=== PATIENT | male | born 1965 | race Caucasian/White ===

== ENCOUNTER 2019-07-25 11:52 | Outpatient (CLI) | payer OTHER, SELFPAY ==
[2019-07-25 12:14] LABS: Basophils Absolute Auto 0.03 K/mm3 (0.00-0.10); Basophils Percent Auto 0.5 % (0.0-1.0); Eosinophils Absolute Auto 0.23 K/mm3 (0.02-0.50); Eosinophils Percent Auto 3.5 % (1.0-6.0); Hematocrit 46.1 % (40.0-54.0); Hemoglobin 15.4 g/dL (14.0-18.0); Immature Granulocyte Absolute 0.02 K/mm3 (0.00-0.00); Immature Granulocyte Percent A 0.3 % (0.0-0.0); Lymphocytes Absolute Auto 2.21 K/mm3 (1.10-4.50); Lymphocytes Percent Auto 33.3 % (18.0-42.0); Mean Corpuscular HGB Conc 33.4 g/dL (32.0-36.0); Mean Corpuscular Volume 101.8 fL (78.0-102.0); Mean Platelet Volume 9.9 fl (8.7-11.0); Monocytes Absolute Auto 0.87 K/mm3 (0.10-0.90); Monocytes Percent Auto 13.1 % (2.0-11.0); Neutrophils Absolute Auto 3.3 K/mm3 (1.7-7.2); Neutrophils Percent Auto 49.3 % (50.0-70.0); Platelet Count Result 177 K/mm3 (150-420); Red Blood Count 4.53 M/mm3 (4.70-6.10); Red Cell Distribution Width 12.8 % (11.6-14.4); White Blood Count 6.6 K/mm3 (4.8-10.8)
--- NOTE | 2019-07-25 12:15 | ECG_ITS ---
Measurements Intervals [place] Rate: 56 P: 17 MI: 162 QRS: 108 QRSD: 116 T: 67 QT: 453 QTc: 438 Interpretive Statements SINUS BRADYCARDIA RIGHT AXIS DEVIATION LOW QRS VOLTAGE IN PRECORDIAL LEADS INCOMPLET RIGHT BUNDLE BRANCH BLOCK DELAYED PRECORDIAL R/S TRANSITION BORDERLINE ST ABNORMALITY- ANT/LAT LEADS BORDERLINE ECG Electronically Signed On 07-25-2019 16:56:57 [employer]ANE RIGGER by Cisco Treviño D.O.
[2019-07-25 13:29] LABS: Alanine Aminotransferase 23 U/L (16-63); Alkaline Phosphatase 56 U/L (46-116); Anion Gap 14.8 mmol/L (7-16); Aspartate Amino Transferase 18 U/L (15-37); Bilirubin,Total 0.4 mg/dL (0.00-1.00); Blood Urea Nitrogen 17 mg/dL (7-18); Calcium 8.6 mg/dL (8.5-10.1); Carbon Dioxide 26 mmol/L (21-32); Chloride 104 mmol/L (98-108); Estimated Glomerular Filt Rate > 60; Glucose 74 mg/dL (70-99); Osmolality Calculated 290 mOsm/kg (285-295); Potassium 4.8 mmol/L (3.5-5.1); Sodium 140 mmol/L (136-145); Total Protein 7.3 g/dL (6.4-8.2)
== END 2019-07-25 11:53 | disposition home or self-care (01) ==
LOC: CHSLAB 12:02
PROVIDERS: PCP Family Medicine
DX: I86.1 Scrotal varices (principal)
CPT/HCPCS: 36415; 80053; 85025; 87077; 87086; 87088; 87186; 93005

== ENCOUNTER 2019-08-10 09:52 | Outpatient (CLI) | payer OTHER, SELFPAY ==
[2019-08-10 11:15] LABS: Alanine Aminotransferase 19 U/L (16-63); Albumin Level 3.6 g/dL (3.4-5.0); Alkaline Phosphatase 58 U/L (46-116); Aspartate Amino Transferase 24 U/L (15-37); Bilirubin,Total 0.4 mg/dL (0.00-1.00); Blood Urea Nitrogen 17 mg/dL (7-18); Calcium 8.4 mg/dL (8.5-10.1); Carbon Dioxide 24 mmol/L (21-32); Chloride 105 mmol/L (98-108); Estimated Glomerular Filt Rate > 60; Glucose 116 mg/dL (70-99); Osmolality Calculated 290 mOsm/kg (285-295); Sodium 139 mmol/L (136-145); Total Protein 7.1 g/dL (6.4-8.2)
== END 2019-08-10 09:53 | disposition home or self-care (01) ==
LOC: CHSLAB 09:55
PROVIDERS: PCP Family Medicine; Visit Provider Family Medicine
DX: E87.5 Hyperkalemia (principal)
CPT/HCPCS: 36415; 80053

== ENCOUNTER 2019-08-28 09:59 | Emergency (ER) | payer OTHER, SELFPAY ==
--- NOTE | ~2019-08-28 | XR_ITS ---
XR knee LT 2V 08/28/2019 10:43 Indication: Left knee pain after recent fall Procedure: 2 views left Comparison: No prior studies for comparison. Findings: There is mild osteoarthritis of the left knee. Small knee effusion. There are multiple roun ded calcifications overlying the knee anteriorly, possibly phleboliths. No acute fracture or traumati c malalignment. Impression: 1: Mild osteoarthritis of the left knee. 2: Small left knee effusion. Reviewed, dictated and finalized at location A. Impression: 1: Mild osteoarthritis of the left knee. 2: Small left knee effusion.
--- NOTE | ~2019-08-28 | XR_ITS ---
XR knee RT 2V 08/28/2019 10:43 Indication: Right knee pain Procedure: 2 views right knee Comparison: No prior studies for comparison. Findings: There is mild osteoarthritis of the right knee. Small joint effusion. There are multiple ci rcumscribed calcifications anterior to the knee, likely benign phleboliths. No fracture or traumatic malalignment. Impression: 1: Mild osteoarthritis of the right knee. 2: Small joint effusion. Reviewed, dictated and finalized at location A. Impression: 1: Mild osteoarthritis of the right knee. 2: Small joint effusion.
[2019-08-28 10:10] VITALS: BP 127/71; PULSE 70; RESP 20; TEMP 36.9; O2SAT 100
[2019-08-28] MEDS: TETANUS,DIPHTHERIA,AC PERTUSSIS ADULT 0.5 ML (ADACEL) IM (10:35)
--- NOTE | 2019-08-28 10:48 | ED.GENADULT ---
HPI - General Adult General Chief complaint: Fall Stated complaint: fell hurt both knees Time Seen by Provider: 08/28/19 10:35 Source: patient Mode of arrival: ambulatory Limitations: no limitations History of Present Illness HPI narrative: Fidel is a very pleasant 54-year-old male patient. He presents ambulatory to the emergency room. He was walking outside and stumbled and fell. He landed on his knees and also on the left elbow. His main complaint is minor pain to the anterior aspect of both knees. He has abrasions to the anterior aspect of both knees. He has minor abrasion to the back of the left elbow. Range of motion to the left elbow is normal. He does not want any x-rays on the elbow. He did agree for x-rays of the knees. He did not want any pain medications. The abrasions were cleansed , antibiotic ointment and Band-Aid dressings were applied. X-rays of both knees were obtained. MD complaint: Fall. Abrasion and contusion to both knees. 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) Location: upper extremity and lower extremity Radiation: non-radiation Severity: mild Quality: sharp Pain Consistency: intermittent Relieving factors: other ( Fidel declined any pain medication) Exacerbating factors: none Associated symptoms: denies other symptoms Treatments prior to arrival: none Related Data Allergies Allergy/AdvReac Type Severity Reaction Status Date / Time prednisone AdvReac Confusion Verified 08/28/19 10:59 Sulfa (Sulfonamide AdvReac Confusion Verified 08/28/19 10:59 Antibiotics) Review of Systems Review of Systems: All systems reviewed & are unremarkable except as noted in HPI and below Constitutional: Constitutional: Reports as per HPI, Reports no additional constitutional complaints, Denies chills and Denies fever(s) Eyes: Eyes: Reports as per HPI, Reports no additional eye complaints and Denies change in vision ENT: Reports system reviewed and no additional complaints, except as documented, Denies vertigo, Denies dizziness and Denies sore throat Cardiovascular: Cardiovascular: Reports as per HPI, Reports no additional cardiovascular complaints, Denies chest pain and Denies radiating jaw, neck or arm pain Respiratory: Respiratory: Reports as per HPI, Reports no additional respiratory complaints, Denies cough and Denies dyspnea Gastrointestinal: Gastrointestinal: Reports as per HPI, Reports no additional gastrointestinal complaints, Denies abdominal pain, Denies nausea and Denies vomiting Genitourinary: Genitourinary: Reports no additional male genitourinary complaints, Denies hematuria and Denies dysuria Musculoskeletal: Musculoskeletal: Reports no additional musculoskeletal complaints Comments: See HPI narrative for details Integumentary/Breasts: Skin/Breast: Reports system reviewed and no additional complaints, except as docu Comments: minor abrasions to anterior aspect of both knees and posterior aspect of left elbow. Neurologic: Reports system reviewed and no additional complaints, except as documented, Reports as per HPI, Denies vertigo, Denies dizziness, Denies syncope, Denies focal weakness and Denies numbness Psychiatric: Psychiatric: Reports no additional psychiatric complaints, Reports as per HPI, Denies anxiety and Denies depression Endocrine: Endocrine: Reports no additional endocrine complaints and Denies polydipsia Hematologic/Lymphatic: Hematologic/Lymphatic: Reports no additional hematologic/lymphatic complaints, Reports as per HPI, Denies easy bleeding and Denies easy bruising Allergic/Immunologic: Allergic/Immunologic: Reports no additional allergic/immunologic complaints, Reports as per HPI, Denies lip swelling and Denies tongue swelling [facility] Past Medical History Medical History (Updated 08/28/19 @ 11:05 by All Solis MD) Hypertension Surgical History Surgical History (Updated 08/28/19 @ 10:59 by All Solis MD) History of ankle surgery S/P excision of varicocel
--- NOTE | 2019-08-28 11:04 | PC.NURSE ---
PT HOME MEDS LISINOPRIL, ZANTAC, FLUOXITINE, AASPIRIN, NAPROSYN. UNKNOWN DOSAGE.
== END 2019-08-28 11:10 | disposition home or self-care (01) ==
PROVIDERS: Emergency Provider Surgery; PCP Family Medicine
DX: S80.01XA Contusion of right knee, initial encounter (principal); S80.02XA Contusion of left knee, initial encounter; S50.312A Abrasion of left elbow, initial encounter; W19.XXXA Unspecified fall, initial encounter
CPT/HCPCS: 73560; 90471; 90715; 99282; 99284

== ENCOUNTER 2019-10-17 06:56 | Outpatient (CLI) | payer OTHER, SELFPAY ==
[2019-10-17 08:03] LABS: Alanine Aminotransferase 22 U/L (16-63); Albumin Level 3.8 g/dL (3.4-5.0); Alkaline Phosphatase 63 U/L (46-116); Anion Gap 14.5 mmol/L (7-16); Aspartate Amino Transferase 21 U/L (15-37); Bilirubin,Total 0.5 mg/dL (0.00-1.00); Blood Urea Nitrogen 23 mg/dL (7-18); Carbon Dioxide 26 mmol/L (21-32); Chloride 104 mmol/L (98-108); Estimated Glomerular Filt Rate > 60; Glucose 95 mg/dL (70-99); Osmolality Calculated 293 mOsm/kg (285-295); Potassium 4.5 mmol/L (3.5-5.1); Sodium 140 mmol/L (136-145)
== END 2019-10-17 06:57 | disposition home or self-care (01) ==
PROVIDERS: PCP Family Medicine; Visit Provider Family Medicine
DX: E87.5 Hyperkalemia (principal)
CPT/HCPCS: 36415; 80053

== ENCOUNTER 2019-11-27 10:34 | Emergency (ER) | payer OTHER, SELFPAY ==
[2019-11-27 11:10] VITALS: BP 111/55; PULSE 76; RESP 16; TEMP 36.8; O2SAT 97
--- NOTE | 2019-11-27 11:11 | ED.LOWEXIN ---
HPI - Extremity Injury (Lower) General Chief Complaint: Extremity Injury, Lower Stated Complaint: Hurt R knee Time Seen by Provider: 11/27/19 11:06 Source: patient and RN notes reviewed Mode of arrival: wheelchair Limitations: no limitations History of Present Illness HPI Narrative: Patient states he was walking his puppy yesterday. He turned and caught his foot tripping hitting a culvert. Says he twisted his knee to the inside falling on it. complaint: knee injury Onset (ago): day(s) (1) Injury: Right: knee Type of Injury: inversion Place: street/outdoors Severity: moderate Relieving factors: rest Exacerbating factors: weight bearing Context: walking Associated symptoms: swelling Other symptoms: none Treatments prior to arrival: NSAIDS Related Data Home Medications Medication Instructions Recorded Confirmed fluoxetine mg 11/27/19 hydrocodone-acetaminophen 11/27/19 lisinopril 11/27/19 Allergies Allergy/AdvReac Type Severity Reaction Status Date / Time prednisone AdvReac Confusion Verified 08/28/19 10:59 Sulfa (Sulfonamide AdvReac Confusion Verified 08/28/19 10:59 Antibiotics) Review of Systems Review of Systems: All systems reviewed & are unremarkable except as noted in HPI and below PMFSH Past Medical History Medical History Hypertension Surgical History Surgical History History of ankle surgery S/P excision of varicocele Family History Family History Father , father of [place] Heart disease Mother , mother of stroke in her early 70s Cerebrovascular accident Social History Social History Smoking packs per day: 1 Smoking cigarettes per day: 20.0 Years smoked: 40 Smoking pack-years: 40.00 Smoking status: Current every day smoker Tobacco type: cigarettes Substance use: never Exam Const: General: healthy appearing and no acute distress Nutritional Appearance: well nourished and obese morbidly obese Orientation/consciousness: patient oriented x3 HENMT: Head: normal to inspection Face and sinus: normal facial exam Eyes: General: appearance normal, both eyes and all related structures Conjunctivae: conjunctivae normal Pupils: Equal, round and reactive pupils present EOM: EOMs intact bilaterally Neck: Neck: normal visual inspection Resp: Effort & Inspection: normal respiratory effort Auscultation: clear to auscultation bilaterally Cardio: Rate: regular rate Rhythm: regular rhythm GI: GI Palp: Yes Soft to palpation Auscultation: normal bowel sounds Back/Spine/Pelvis: Cervical Spine: cervical ROM normal Thoracic/Lumbar Spine: thoraco-lumbar ROM normal Skin: General skin exam: normal color Rashes: no rashes Neuro: General: patient oriented x3, moves all extremities, no meningeal signs and no focal motor deficits Speech: normal speech Gait exam (Neuro): Normal gait present Extrem: General: normal to inspection and no pedal edema Right lower extremity: knee Details: swelling Location: of the proximal tibia Details: medially and knee ligament exam normal Details: anterior drawer test normal, valgus stress test normal, varus stress test normal and Usha?s test normal Psych: Appearance: grossly normal and well kempt Mental Status: mental status grossly normal Affect: normal affect Attitude: cooperative Thought content: Yes Normal thought content present Discharge Plan Discharge Clinical Impression: Strain of knee and leg, right Qualifiers: Encounter type: initial encounter Qualified Code(s): S86.911A - Strain of unspecified muscle(s) and tendon(s) at lower leg level, right leg, initial encounter Patient Disposition: Home, Self-Care Condition: Stable Instructions: Knee Sprain (ED) Additional Instructions
== END 2019-11-27 11:40 | disposition home or self-care (01) ==
PROVIDERS: Emergency Provider Emergency Medicine; PCP Family Medicine
DX: S86.911A Strain of unspecified muscle(s) and tendon(s) at lower leg level, right leg, initial encounter (principal); W18.40XA Slipping, tripping and stumbling without falling, unspecified, initial encounter
CPT/HCPCS: 99282

== ENCOUNTER 2020-02-01 07:39 | Outpatient (CLI) | payer OTHER, SELFPAY ==
--- NOTE | ~2020-02-01 | US_ITS ---
EXAMINATION: US soft tissue groin LT DATE: 02/01/2020 08:05 INDICATION: Left pelvic lump. TECHNIQUE: Multiple grayscale and Doppler ultrasound images of the left inguinal region were obtained . COMPARISON: None FINDINGS: There is no abnormal mass or lymphadenopathy in the left inguinal region in the patient's a nicole of concern. IMPRESSION: 1. No abnormal mass or lymphadenopathy in the left inguinal region in the patient's area of concern. Reviewed, dictated and finalized at location B. IMPRESSION: 1. No abnormal mass or lymphadenopathy in the left inguinal region in the patie nt's area of concern.
== END 2020-02-01 07:40 | disposition home or self-care (01) ==
PROVIDERS: PCP Family Medicine; Visit Provider Family Medicine
DX: R19.09 Other intra-abdominal and pelvic swelling, mass and lump (principal)
CPT/HCPCS: 76882

== ENCOUNTER 2020-10-19 10:09 | Outpatient (CLI) | payer OTHER, SELFPAY | END 2020-10-19 10:10 | disposition home or self-care (01) | LOC: CHSCOVIDVC 10:09 | PROVIDERS: PCP Family Medicine | DX: Z23 Encounter for immunization (principal) | CPT/HCPCS: 0011A; 91301 ==

== ENCOUNTER 2020-11-16 09:51 | Outpatient (CLI) | payer OTHER, SELFPAY | END 2020-11-16 09:52 | disposition home or self-care (01) | LOC: CHSCOVIDVC 09:51 | PROVIDERS: PCP Family Medicine | DX: Z23 Encounter for immunization (principal) | CPT/HCPCS: 0012A; 91301 ==

== ENCOUNTER 2020-12-03 09:52 | Emergency (ER) | payer OTHER, SELFPAY ==
[2020-12-03 10:00] VITALS: BP 118/62; PULSE 73; RESP 20; TEMP 36.5; O2SAT 98
--- NOTE | 2020-12-03 10:08 | ED.LOWEXIN ---
HPI - Extremity Injury (Lower) General Stated Complaint: Left foot blister Time Seen by Provider: 12/03/20 10:08 Source: patient Mode of arrival: ambulatory Limitations: no limitations Related Data Home Medications Medication Instructions Recorded Confirmed aspirin 81 mg tablet,delayed 81 mg PO DAILY 01/29/20 12/03/20 release famotidine 20 mg PO DAILY 12/03/20 12/03/20 fluoxetine 20 mg PO DAILY 12/03/20 12/03/20 lisinopril 10 mg PO DAILY 12/03/20 12/03/20 Allergies Allergy/AdvReac Type Severity Reaction Status Date / Time prednisone AdvReac Confusion Verified 11/15/20 10:40 Sulfa (Sulfonamide AdvReac Confusion Verified 11/15/20 10:40 Antibiotics) [facility] Past Medical History Medical History (Updated 12/03/20 @ 10:15 by Vinod Cagle MD) Acid reflux BMI greater than 40 Depression HTN (hypertension) Hypertension Nicotine dependence, cigarettes, uncomplicated Surgical History Surgical History History of ankle surgery Left History of colon surgery 2014 S/P excision of varicocele Family History Family History Father , father of [place] Heart disease Mother , mother of stroke in her early 70s Cerebrovascular accident Social History Social History Smoking packs per day: 1 Smoking cigarettes per day: 20.0 Years smoked: 40 Smoking pack-years: 40.00 Smoking status: Current every day smoker Tobacco type: cigarettes Substance use: never Substance use type: does not use Discharge Plan Discharge Clinical Impression: Wound of foot Patient Disposition: Home, Self-Care Condition: Stable Instructions: Antibiotic Form, Acute Wounds (ED) Additional Instructions: Follow up with family doctor as needed Prescriptions: New sulfamethoxazole-trimethoprim [Bactrim DS] 800-160 mg tablet 1 tablet PO Q12H Qty: 20 RF: 0 No Action famotidine 20 mg tablet 20 mg PO DAILY RF: 0 lisinopril 10 mg tablet 10 mg PO DAILY RF: 0 fluoxetine 20 mg capsule 20 mg PO DAILY RF: 0 aspirin [Adult Aspirin Regimen] 81 mg tablet,delayed release (DR/EC) 81 mg PO DAILY RF: 0 Follow-up/Referrals: Hoang Smith DO [Primary Care Provider] - Time of Disposition: 10:15
[2020-12-03 10:20] VITALS: BP 118/62; PULSE 73; RESP 20; TEMP 36.5; O2SAT 97
== END 2020-12-03 10:22 | disposition home or self-care (01) ==
PROVIDERS: Emergency Provider Emergency Medicine; PCP Family Medicine
DX: S91.302A Unspecified open wound, left foot, initial encounter (principal)
CPT/HCPCS: 99283

== ENCOUNTER 2021-03-12 12:15 | Outpatient (NON) | payer OTHER, SELFPAY | END 2021-03-12 12:16 | disposition home or self-care (01) | LOC: CHSLAB 12:16 | PROVIDERS: Visit Provider Nurse Practitioner Family | DX: L02.91 Cutaneous abscess, unspecified (principal) | CPT/HCPCS: 87070; 87205 ==

== ENCOUNTER 2021-05-13 13:38 | Outpatient (CLI) | payer OTHER, SELFPAY ==
--- NOTE | ~2021-05-13 | US_ITS ---
EXAMINATION: US scrotum doppler EXAM DATE: 05/13/2021 14:04 INDICATION: N50.812 - Left testicular pain. History varicocelectomy. TECHNIQUE: Multiple grayscale and Doppler images of the testicles and scrotum were obtained bilateral ly. Comparison is made to prior examination from 09/05/2009. FINDINGS: Right testicle measures 3.5 x 1.9 x 2.7 cm and is morphologically normal. Low resistance Doppler atul w confirmed. The epididymis is unremarkable. Moderate-sized varicocele, vessel diameter up to 4 mm. Left testicle measures 3.5 x 1.4 x 2.9 cm and is morphologically normal. Low resistance Doppler flow confirmed. The epididymis is unremarkable. Small varicocele as diameter up to 2 mm. Trace left hydro lamont. Compared to Limited study from 2009, varicoceles appear more pronounced. IMPRESSION: Moderate right, small left varicoceles. Reviewed, dictated and finalized at location A. ER FEEDER
== END 2021-05-13 13:39 | disposition home or self-care (01) ==
LOC: CHSIMG 13:39
PROVIDERS: PCP Nurse Practitioner Family; Visit Provider Nurse Practitioner Family
DX: N50.812 Left testicular pain (principal)
CPT/HCPCS: 76870; 93976

== ENCOUNTER 2021-06-16 12:08 | Outpatient (CLI) | payer OTHER, SELFPAY ==
[2021-06-16 13:19] LABS: Influenza A QL RT-PCR Negative (Negative); Influenza B QL RT-PCR Negative (Negative); SARS-CoV-2 RNA PCR Negative (Negative)
== END 2021-06-16 12:09 | disposition home or self-care (01) ==
LOC: CHSLAB 12:11
PROVIDERS: PCP Family Medicine; Visit Provider Nurse Practitioner Family
DX: R50.9 Fever, unspecified (principal); Z20.822 Contact with and (suspected) exposure to COVID-19
CPT/HCPCS: 87502; C9803; U0003; U0005

== ENCOUNTER 2021-06-18 09:01 | Emergency (ER) | payer OTHER, SELFPAY ==
[2021-06-18 09:17] VITALS: BP 159/83; PULSE 71; RESP 16; TEMP 36.6; O2SAT 98
--- NOTE | 2021-06-18 09:31 | ED.MALEGU ---
HPI - Male Genitourinary General Chief complaint: Urogenital-Male Stated complaint: FEELING WEAK Related Data Home Medications Medication Instructions Recorded Confirmed aspirin 81 mg tablet,delayed 81 mg PO DAILY 01/29/20 06/18/21 release omeprazole 20 mg PO DAILY 06/18/21 06/18/21 Allergies Allergy/AdvReac Type Severity Reaction Status Date / Time prednisone AdvReac Confusion Verified 06/18/21 09:14 Sulfa (Sulfonamide AdvReac Confusion Verified 06/18/21 09:14 Antibiotics) Review of Systems Constitutional: Constitutional: Denies chills and Denies fever(s) ENT: Denies sore throat Cardiovascular: Cardiovascular: Denies chest pain PMFSH Past Medical History Medical History Acid reflux BMI greater than 40 Depression HTN (hypertension) Hypertension Nicotine dependence, cigarettes, uncomplicated Surgical History Surgical History History of ankle surgery Left History of colon surgery 2014 S/P excision of varicocele Family History Family History Father , father of [place] Heart disease Mother , mother of stroke in her early 70s Cerebrovascular accident Social History Social History Smoking packs per day: 1 Smoking cigarettes per day: 20.0 Years smoked: 40 Smoking pack-years: 40.00 Smoking status: Current every day smoker Tobacco type: cigarettes Alcohol use details: denies alcohol use Substance use: never Substance use type: does not use Course Vital Signs Vital signs: Vital Signs Temperature 36.6 C 06/18/21 09:17 Pulse Rate 71 06/18/21 09:17 Respiratory Rate 16 06/18/21 09:17 Blood Pressure 159/83 H 06/18/21 09:17 Pulse Oximetry 98 06/18/21 09:17 Temperature 36.6 C 06/18/21 09:17 Pulse Rate 71 06/18/21 09:17 Respiratory Rate 16 06/18/21 09:17 Blood Pressure 159/83 H 06/18/21 09:17 Pulse Oximetry 98 06/18/21 09:17 MDM - Male Genitourinary Lab Data Result diagrams: 06/18/21 10:05 06/18/21 10:05 Labs: Lab Results 06/18/21 06/18/21 06/18/21 Range/Units 09:44 10:05 10:05 WBC 6.8 (4.8-10.8) K/mm3 RBC 4.91 (4.70-6.10) M/mm3 Hgb 16.4 (14.0-18.0) g/dL Hct 49.5 (40.0-54.0) % MCV 100.8 (78.0-102.0) fL MCH 33.4 H (27.0-31.0) pg MCHC 33.1 (32.0-36.0) g/dL RDW 12.7 (11.6-14.4) % Plt Count 195 (150-420) K/mm3 MPV 9.7 (8.7-11.0) fl Immature Gran % (Auto) 0.4 H (0.0-0.0) % Neut % (Auto) 75.3 H (50.0-70.0) % Lymph % (Auto) 14.1 L (18.0-42.0) % Alcorn % (Auto) 7.9 (2.0-11.0) % Eos % (Auto) 1.6 (1.0-6.0) % Baso % (Auto) 0.7 (0.0-1.0) % Lymph # (Auto) 0.95 L (1.10-4.50) K/mm3 Alcorn # (Auto) 0.53 (0.10-0.90) K/mm3 Eos # (Auto) 0.11 (0.02-0.50) K/mm3 Baso # (Auto) 0.05 (0.00-0.10) K/mm3 Abs Immat Gran (auto) 0.03 H (0.00-0.00) K/mm3 Absolute Neuts (auto) 5.1 (1.7-7.2) K/mm3 Absolute Nucleated RBC 0.00 (0.00-0.00) K/mm3 Nucleated RBC % 0.0 (0-0.0) % Sodium 136 (136-145) mmol/L Potassium 4.4 (3.5-5.1) mmol/L Chloride 100 (98-108) mmol/L Carbon Dioxide 26 (21-32) mmol/L Anion Gap 10 (8-16) mmol/L BUN 13 (7-18) mg/dL Creatinine 1.00 (0.70-1.30) mg/dL Estim Creat Clear Calc 105 ml/min Estimated GFR > 60 (59 - ) Glucose 114 H (70-99) mg/dL Calculated Osmolality 283 L (285-295) mOsm/kg Lactic Acid (0.4-2.0) mmol/L Calcium 9.1 (8.5-10.1) mg/dL Total Bilirubin 0.9 (0.00-1.00) mg/dL AST 65 H (15-37) U/L ALT 32 (16-63) U/L Alkaline Phosphatase 71 (46-116) U/L Troponin I (0.00-60.4) ng/L C-Reactive Protein (0.0-0.9) mg/dL Total Protein 7.7 (6.4-8.
--- NOTE | 2021-06-18 09:58 | ECG_ITS ---
Measurements Intervals [place] Rate: 60 P: 15 MA: 149 QRS: 118 QRSD: 109 T: 47 QT: 440 QTc: 440 Interpretive Statements SINUS RHYTHM RIGHT AXIS DEVIATION INCOMPLETE RIGHT BUNDLE BRANCH BLOCK DELAYED PRECORDIAL R/S TRANSITION BORDERLINE ECG Electronically Signed On 06-18-2021 10:10:30 [employer]PORATE STRATEGY INTERN by Cisco Treviño D.O.
[2021-06-18] MEDS: ONDANSETRON HCL ODT 4 MG TABLET PO (10:06)
[2021-06-18 10:16] LABS: Basophils Absolute Auto 0.05 K/mm3 (0.00-0.10); Basophils Percent Auto 0.7 % (0.0-1.0); Eosinophils Absolute Auto 0.11 K/mm3 (0.02-0.50); Eosinophils Percent Auto 1.6 % (1.0-6.0); Hematocrit 49.5 % (40.0-54.0); Hemoglobin 16.4 g/dL (14.0-18.0); Immature Granulocyte Absolute 0.03 K/mm3 (0.00-0.00); Immature Granulocyte Percent A 0.4 % (0.0-0.0); Lymphocytes Absolute Auto 0.95 K/mm3 (1.10-4.50); Lymphocytes Percent Auto 14.1 % (18.0-42.0); Mean Corpuscular HGB Conc 33.1 g/dL (32.0-36.0); Mean Corpuscular Hemoglobin 33.4 pg (27.0-31.0); Mean Corpuscular Volume 100.8 fL (78.0-102.0); Mean Platelet Volume 9.7 fl (8.7-11.0); Monocytes Absolute Auto 0.53 K/mm3 (0.10-0.90); Monocytes Percent Auto 7.9 % (2.0-11.0); Neutrophils Absolute Auto 5.1 K/mm3 (1.7-7.2); Neutrophils Percent Auto 75.3 % (50.0-70.0); Platelet Count Result 195 K/mm3 (150-420); Red Blood Count 4.91 M/mm3 (4.70-6.10); Red Cell Distribution Width 12.7 % (11.6-14.4); White Blood Count 6.8 K/mm3 (4.8-10.8)
[2021-06-18 10:34] LABS: Lactic Acid Reflex 1.2 mmol/L (0.4-2.0)
[2021-06-18 10:38] LABS: Alanine Aminotransferase 32 U/L (16-63); Alkaline Phosphatase 71 U/L (46-116); Anion Gap 10 mmol/L (8-16); Aspartate Amino Transferase 65 U/L (15-37); Bilirubin,Total 0.9 mg/dL (0.00-1.00); Blood Urea Nitrogen 13 mg/dL (7-18); CRP < 0.2 mg/dL (0.0-0.9); Calcium 9.1 mg/dL (8.5-10.1); Carbon Dioxide 26 mmol/L (21-32); Chloride 100 mmol/L (98-108); Estimated CRCL calculation 105 ml/min; Estimated Glomerular Filt Rate > 60; Glucose 114 mg/dL (70-99); Lipase 155 U/L (73-393); Osmolality Calculated 283 mOsm/kg (285-295); Potassium 4.4 mmol/L (3.5-5.1); Sodium 136 mmol/L (136-145); Total Protein 7.7 g/dL (6.4-8.2)
[2021-06-18 10:38] LABS: Troponin I 11.3 ng/L (0.00-60.4)
[2021-06-18 10:55] LABS: Add Urine Microscopic? NO; Appearance Urine Clear (Clear); Bilirubin Urine Negative (Negative); Blood Urine Negative (Negative); Color Urine Yellow (Yellow); Glucose Urine UA Negative (Negative); Ketones Urine Negative (Negative); Leukocyte Esterase Ur Negative LEU/UL (Negative); Nitrate Urine Negative (Negative); Protein Urine Negative (Negative); Specific Grav Ur 1.025 (1.010-1.020); Urobilinogen Urine 0.2 mg/dL (0.2-1.0)
[2021-06-18] MEDS: LACTATED RINGERS 1,000 ML 999 ML IV CONT (12:11)
--- NOTE | 2021-06-18 12:35 | ED.WEAKNESS ---
HPI - Weakness General Chief complaint: Urogenital-Male Stated complaint: FEELING WEAK Source: patient and RN notes reviewed Mode of arrival: ambulatory Limitations: no limitations History of Present Illness HPI Narrative: Patient states he has been having 3 days of generalized weakness. He called his primary care and had outpatient testing done yesterday for COVID and influenza. Both were negative. He says he just feels dizzy has been having some headaches feels nauseous but has not thrown up. Said he was able to keep some food down yesterday. He states he has got chronic diarrhea nothing has changed. Denies any fever chills. Denies any cough. Says he is having some low back pain as well. No other generalized aches or pains. MD Complaint: generalized weakness Onset (ago): day(s) (3) Duration: constant Location: generalized Migration: none Severity: moderate Relieving factors: none Exacerbating factors: exertion Associated symptoms: headaches, loss of appetite and nausea/vomiting (no vomiting) Related Data Home Medications Medication Instructions Recorded Confirmed aspirin 81 mg tablet,delayed 81 mg PO DAILY 01/29/20 06/18/21 release omeprazole 20 mg PO DAILY 06/18/21 06/18/21 Allergies Allergy/AdvReac Type Severity Reaction Status Date / Time prednisone AdvReac Confusion Verified 06/18/21 09:14 Sulfa (Sulfonamide AdvReac Confusion Verified 06/18/21 09:14 Antibiotics) Review of Systems Review of Systems: All systems reviewed & are unremarkable except as noted in HPI and below Constitutional: Constitutional: Denies chills and Denies fever(s) Cardiovascular: Cardiovascular: Denies chest pain Respiratory: Respiratory: Denies cough and Denies dyspnea Gastrointestinal: Gastrointestinal: Denies abdominal pain, Denies constipation, Reports nausea and Denies vomiting Neurologic: Reports dizziness and Reports headache(s) [facility] Past Medical History Medical History (Updated 06/18/21 @ 12:50 by Vinod Morfin MD) Acid reflux BMI greater than 40 Depression HTN (hypertension) Hypertension Nicotine dependence, cigarettes, uncomplicated Surgical History Surgical History History of ankle surgery Left History of colon surgery 2014 S/P excision of varicocele Family History Family History Father , father of [place] Heart disease Mother , mother of stroke in her early 70s Cerebrovascular accident Social History Social History Smoking packs per day: 1 Smoking cigarettes per day: 20.0 Years smoked: 40 Smoking pack-years: 40.00 Smoking status: Current every day smoker Tobacco type: cigarettes Alcohol use details: denies alcohol use Substance use: never Substance use type: does not use Exam Const: General: healthy appearing, no acute distress and alert Nutritional Appearance: well nourished and obese morbidly obese Orientation/consciousness: patient oriented x3 HENMT: Head: normal to inspection Ears: external ears normal Mouth: Yes moist mucous membranes Eyes: Conjunctivae: conjunctivae normal Pupils: Equal, round and reactive pupils present EOM: EOMs intact bilaterally Neck: Neck: normal visual inspection Resp: Effort & Inspection: normal respiratory effort Auscultation: clear to auscultation bilaterally Cardio: Rate: regular rate Rhythm: regular rhythm GI: GI Palp: Yes Soft to palpation, No Tenderness to palpation present (GI) and No Rebound tenderness present Auscultation: normal bowel sounds Back/Spine/Pelvis: Cervical Spine: cervical ROM normal Thoracic/Lumbar Spine: thoraco-lumbar ROM normal Skin: General skin exam: normal color Rashes: no rashes Neuro: General: patient oriented x3, moves all extremities, no meningeal signs and no focal motor de
[2021-06-18 13:01] VITALS: BP 122/68; PULSE 67; RESP 16; TEMP 36.8; O2SAT 95
--- NOTE | 2021-06-21 10:26 | PC.NURSE ---
spoke with pt regarding blood cultures, explained need for antibiotics. rx called to [facility] per pt request. per dr verma rx : dicloxacillin 500mg Q6hrs (#40). called in at 1028am. 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
--- NOTE | 2021-06-24 13:47 | PC.NURSE ---
pt's PMD notified of culture report. pt called and instructed to f/u with pmd for an appointment today.
== END 2021-06-18 13:05 | disposition home or self-care (01) ==
PROVIDERS: Emergency Provider Emergency Medicine; PCP Family Medicine
DX: R53.1 Weakness (principal)
CPT/HCPCS: 36415; 80053; 81003; 83605; 83690; 84443; 84484; 85025; 86140; 87040; 87147; 87186; 93005; 96360; 99283; 99284; A9270; J7120

== ENCOUNTER 2021-07-01 08:03 | Outpatient (CLI) | payer OTHER, SELFPAY ==
[2021-07-01 09:36] LABS: Magnesium 2.1 mg/dL (1.8-2.4); Vitamin B12 390 pg/mL (193-986)
[2021-07-04 04:00] LABS: Vitamin D 25 Hydroxy 27 ng/mL (30-100)
== END 2021-07-01 08:04 | disposition home or self-care (01) ==
LOC: CHSLAB 08:05
PROVIDERS: PCP Nurse Practitioner Family; Visit Provider Nurse Practitioner Family
DX: Z79.899 Other long term (current) drug therapy (principal); R53.1 Weakness
CPT/HCPCS: 36415; 82306; 82607; 83735

== ENCOUNTER 2021-10-07 10:10 | Outpatient (CLI) | payer OTHER, SELFPAY ==
[2021-10-07 10:25] LABS: Basophils Absolute Auto 0.05 K/mm3 (0.00-0.10); Basophils Percent Auto 0.8 % (0.0-1.0); Eosinophils Absolute Auto 0.25 K/mm3 (0.02-0.50); Eosinophils Percent Auto 4.1 % (1.0-6.0); Hematocrit 47.9 % (40.0-54.0); Hemoglobin 15.7 g/dL (14.0-18.0); Immature Granulocyte Absolute 0.04 K/mm3 (0.00-0.00); Immature Granulocyte Percent A 0.7 % (0.0-0.0); Lymphocytes Absolute Auto 1.83 K/mm3 (1.10-4.50); Lymphocytes Percent Auto 30.1 % (18.0-42.0); Mean Corpuscular HGB Conc 32.8 g/dL (32.0-36.0); Mean Corpuscular Hemoglobin 32.6 pg (27.0-31.0); Mean Corpuscular Volume 99.6 fL (78.0-102.0); Mean Platelet Volume 9.8 fl (8.7-11.0); Monocytes Absolute Auto 0.62 K/mm3 (0.10-0.90); Monocytes Percent Auto 10.2 % (2.0-11.0); Neutrophils Absolute Auto 3.3 K/mm3 (1.7-7.2); Neutrophils Percent Auto 54.1 % (50.0-70.0); Platelet Count Result 183 K/mm3 (150-420); Red Blood Count 4.81 M/mm3 (4.70-6.10); Red Cell Distribution Width 13.4 % (11.6-14.4); White Blood Count 6.1 K/mm3 (4.8-10.8)
[2021-10-07 11:02] LABS: Prostate Specific Antigen 0.4 ng/mL (< OR = 4.0)
== END 2021-10-07 10:11 | disposition home or self-care (01) ==
LOC: CHSLAB 10:14
PROVIDERS: PCP Family Medicine; Visit Provider Nurse Practitioner Family
DX: R39.9 Unspecified symptoms and signs involving the genitourinary system (principal); M54.50 Low back pain, unspecified; N53.19 Other ejaculatory dysfunction
CPT/HCPCS: 36415; 84153; 85025; 87086

== ENCOUNTER 2021-10-18 17:16 | Emergency (ER) | payer OTHER, SELFPAY ==
--- NOTE | ~2021-10-18 | XR_ITS ---
EXAMINATION: XR chest 2V Exam Date/Time: 10/18/2021 17:55 CDT CLINICAL HISTORY: weakness Comparison: 04/28/2010. RESULT: Lines, tubes, and devices: None. Lungs and pleura: Clear. Cardiomediastinal silhouette: Stable cardiomediastinal silhouette. Other: No acute osseous or upper abdominal finding. IMPRESSION: No acute cardiopulmonary process Reviewed, dictated and finalized at location K.
--- NOTE | 2021-10-18 17:35 | ECG_ITS ---
Measurements Intervals [place] Rate: 71 P: 5 NE: 161 QRS: 118 QRSD: 107 T: 95 QT: 421 QTc: 458 Interpretive Statements SINUS RHYTHM INCOMPLETE RIGHT BUNDLE BRANCH BLOCK BORDERLINE T WAVE ABNORMALITY- ANTEROLAT/HIGH LAT LEADS LOW QRS VOLTAGE IN PRECORDIAL LEADS BASELINE ARTIFACT- I, II, III, AVR, AVL, AVF, V1-V6 BORDERLINE ECG Electronically Signed On 10-19-2021 6:47:30 CDT by Cisco Treviño D.O.
[2021-10-18 17:36] VITALS: BP 144/88; PULSE 75; RESP 20; TEMP 36.4; O2SAT 96
--- NOTE | 2021-10-18 17:37 | ED.NAVMDI ---
HPI - Nausea/Vomiting/Diarrhea General Chief complaint: Nausea/Vomiting/Diarrhea Stated complaint: feeling week fatigue nauseated sweating Time Seen by Provider: 10/18/21 17:37 Source: patient Mode of arrival: ambulatory Limitations: no limitations History of Present Illness HPI Narrative: this is a 56-year-old gentleman with a history of hypertension, was diagnosed with COVID approximately 2 weeks ago and presents today with some nausea with no chest pain no shortness of breath no cough or congestion patient just describes feeling of weakness and shakiness, with no fever chills has nausea with some no vomiting no diarrhea or constipation no flank pain no dysuria. MD elicited complaint: nausea Onset (ago): hour(s) Associated nausea: Yes Associated abdominal pain: No Related Data Home Medications Medication Instructions Recorded Confirmed aspirin 81 mg tablet,delayed 81 mg PO DAILY 01/29/20 08/04/21 release famotidine 20 mg PO DAILY 10/18/21 10/18/21 fluoxetine 20 mg PO BID 10/18/21 10/18/21 lisinopril 10 mg PO DAILY 10/18/21 10/18/21 omeprazole 20 mg PO DAILY 10/18/21 10/18/21 Allergies Allergy/AdvReac Type Severity Reaction Status Date / Time prednisone AdvReac Confusion Verified 10/18/21 17:41 Sulfa (Sulfonamide AdvReac Confusion Verified 10/18/21 17:41 Antibiotics) Review of Systems Review of Systems: All systems reviewed & are unremarkable except as noted in HPI and below PMFSH Past Medical History Medical History (Updated 10/18/21 @ 18:47 by Kuldip Turner MD) Acid reflux BMI greater than 40 Depression HTN (hypertension) Hypertension Nicotine dependence, cigarettes, uncomplicated Surgical History Surgical History History of ankle surgery Left History of colon surgery 2014 S/P excision of varicocele Family History Family History Father , father of [place] Heart disease Mother , mother of stroke in her early 70s Cerebrovascular accident Social History Social History Smoking packs per day: 1 Smoking cigarettes per day: 20.0 Years smoked: 40 Smoking pack-years: 40.00 Smoking status: Current every day smoker (A pack a day) Tobacco type: cigarettes Alcohol use details: denies alcohol use Substance use: never Substance use type: does not use Exam Const: General: no acute distress and alert Orientation/consciousness: patient oriented x3 HENMT: Head: normal to inspection Eyes: Pupils: Equal, round and reactive pupils present Neck: Neck: normal visual inspection, no lymphadenopathy and no meningeal signs Chest: Chest palpation & inspection: normal inspection of the chest Resp: Effort & Inspection: normal respiratory effort Cardio: Rate: regular rate Rhythm: regular rhythm GI: GI Palp: Yes Soft to palpation Percussion: Yes normal to percussion Urinary Catheter: Urinary Catheter: patent and draining Back/Spine/Pelvis: Back: no CVA tenderness Skin: General skin exam: normal color Rashes: no rashes Neuro: General: patient oriented x3 and moves all extremities Extrem: General: normal to inspection and no pedal edema Psych: Mental Status: mental status grossly normal Course Course Emergency Course: Patient feeling nauseated and describing some weakness, IV started and IV fluids given IV Zofran and EKG and blood work were performed and reviewed with patient and family. reassessment of patient states that he is feeling much better after receiving Zofran and IV fluids. Critical Care Time Critical Care Time Critical Care Time: No Discharge Plan Discharge Clinical Impression: Weakness, Nausea, Hyponatremia Patient Disposition: Home, Self-Care Condition: Stable Instructions: Antibiotic Form, Acute Nausea and Vomiting (ED), Hyponatremia
[2021-10-18 17:55] LABS: Basophils Absolute Auto 0.03 K/mm3 (0.00-0.10); Basophils Percent Auto 0.4 % (0.0-1.0); Eosinophils Absolute Auto 0.11 K/mm3 (0.02-0.50); Eosinophils Percent Auto 1.6 % (1.0-6.0); Hematocrit 47.3 % (40.0-54.0); Hemoglobin 15.7 g/dL (14.0-18.0); Immature Granulocyte Absolute 0.04 K/mm3 (0.00-0.00); Immature Granulocyte Percent A 0.6 % (0.0-0.0); Immature Platelet Fraction Pct 4.4 % (1.0-7.0); Lymphocytes Percent Auto 21.9 % (18.0-42.0); Mean Corpuscular HGB Conc 33.2 g/dL (32.0-36.0); Mean Corpuscular Hemoglobin 32.2 pg (27.0-31.0); Mean Corpuscular Volume 96.9 fL (78.0-102.0); Mean Platelet Volume 10.9 fl (8.7-11.0); Monocytes Absolute Auto 0.62 K/mm3 (0.10-0.90); Neutrophils Absolute Auto 4.6 K/mm3 (1.7-7.2); Neutrophils Percent Auto 66.5 % (50.0-70.0); Platelet Count Result 165 K/mm3 (150-420); Red Blood Count 4.88 M/mm3 (4.70-6.10); Red Cell Distribution Width 12.9 % (11.6-14.4); White Blood Count 6.9 K/mm3 (4.8-10.8)
[2021-10-18] MEDS: SODIUM CHLORIDE 0.9% IV 500 ML 999 ML IV CONT (17:57)
[2021-10-18] MEDS: ONDANSETRON INJ 4 MG/2 ML VIAL IV PUSH (17:59)
[2021-10-18 18:10] LABS: Alanine Aminotransferase 15 U/L (16-63); Albumin Level 3.7 g/dL (3.4-5.0); Alkaline Phosphatase 75 U/L (46-116); Anion Gap 8 mmol/L (8-16); Aspartate Amino Transferase 16 U/L (15-37); Bilirubin,Total 0.5 mg/dL (0.00-1.00); Blood Urea Nitrogen 15 mg/dL (7-18); Calcium 8.5 mg/dL (8.5-10.1); Carbon Dioxide 26 mmol/L (21-32); Chloride 98 mmol/L (98-108); Estimated CRCL calculation 129 ml/min; Estimated Glomerular Filt Rate > 60; Glucose 86 mg/dL (70-99); Osmolality Calculated 273 mOsm/kg (285-295); Potassium 4.1 mmol/L (3.5-5.1); Sodium 132 mmol/L (136-145); Total Protein 7.5 g/dL (6.4-8.2); Troponin I 7.2 ng/L (0.00-60.4)
[2021-10-18 18:41] LABS: Add Urine Microscopic? NO; Appearance Urine Clear (Clear); Bilirubin Urine Negative (Negative); Blood Urine Negative (Negative); Color Urine Light Yellow (Yellow); Glucose Urine UA Negative (Negative); Ketones Urine Negative (Negative); Leukocyte Esterase Ur Negative (Negative); Nitrate Urine Negative (Negative); Protein Urine Negative (Negative); Specific Grav Ur 1.015 (1.010-1.020); Urobilinogen Urine 0.2 mg/dL (0.2-1.0)
[2021-10-18 18:52] VITALS: BP 137/66; PULSE 66; RESP 20; TEMP 36.7; O2SAT 95
== END 2021-10-18 19:09 | disposition home or self-care (01) ==
PROVIDERS: Emergency Provider Emergency Medicine; PCP Family Medicine
DX: R53.1 Weakness (principal); R11.0 Nausea; E87.1 Hypo-osmolality and hyponatremia
CPT/HCPCS: 36415; 71046; 80053; 81003; 84484; 85025; 85055; 93005; 96361; 96374; 99284; J2405; J7040

== ENCOUNTER 2021-10-21 13:21 | Outpatient (CLI) | payer OTHER, SELFPAY ==
--- NOTE | ~2021-10-21 | XR_ITS ---
EXAMINATION: XR lumbar spine 2-3V DATE: 10/21/2021 13:42 INDICATION: Low back pain TECHNIQUE: Anteroposterior and lateral views of the lumbar spine, and cone-down lateral view of the l umbosacral junction were obtained. COMPARISON: None. FINDINGS: Bone alignment is normal. There is no fracture. The vertebral body heights are normal. The intervertebral disc spaces are maintained. Small degenerative osteophytes project from the anterior e ndplates of multiple vertebral bodies. There is mild facet osteoarthritis of the lower lumbar spine. Calcified atherosclerosis is noted. IMPRESSION: 1. Mild lumbar spondylosis without acute findings. Reviewed, dictated and finalized at location A.
== END 2021-10-21 13:22 | disposition home or self-care (01) ==
LOC: CHSIMG 13:24
PROVIDERS: PCP Family Medicine; Visit Provider Family Medicine
DX: M47.816 Spondylosis without myelopathy or radiculopathy, lumbar region (principal); M54.9 Dorsalgia, unspecified
CPT/HCPCS: 72100

== ENCOUNTER 2021-10-27 07:42 | Outpatient (CLI) | payer OTHER, SELFPAY ==
--- NOTE | ~2021-10-27 | US_ITS ---
EXAMINATION: US abdomen limited DATE: 10/27/2021 08:05 INDICATION: Unspecified abdominal pain TECHNIQUE: Multiple grayscale and Doppler ultrasound images of the abdomen were obtained. COMPARISON: None available FINDINGS: Bowel gas obscures visualization of the pancreas. The visualized portions of the pancreas a re unremarkable. The liver demonstrates increased echogenicity, heterogenous echotexture, and decreas ed through transmission. No surface nodularity. Normal hepatopetal flow in the main portal vein. The gallbladder is normal with no abnormal wall thickening, pericholecystic fluid or stones. The normal c ommon bile duct measures 4 mm. There was no sonographic Ayala sign. IMPRESSION: 1. Diffuse hepatic steatosis. No sonographic correlate for abdominal pain. Reviewed, dictated and finalized at location A.
== END 2021-10-27 07:43 | disposition home or self-care (01) ==
LOC: CHSIMG 07:44
PROVIDERS: PCP Family Medicine; Visit Provider Family Medicine
DX: R10.9 Unspecified abdominal pain (principal)
CPT/HCPCS: 76705

== ENCOUNTER 2021-11-25 12:20 | Outpatient (CLI) | payer OTHER, SELFPAY ==
--- NOTE | ~2021-11-25 | XR_ITS ---
XR foot LT 2V DATE: 11/25/2021 13:07 INDICATION: Intermittent pain, erythema, swelling of left foot TECHNIQUE: AP and lateral views COMPARISON: None FINDINGS: Status post surgical talocalcaneal and calcaneocuboid fusion. There is osteoporotic change at the talonavicular and tarsal joints. Mild osteoarthritis at the tibiotalar and first metatarsophalangeal joints. Slight plantar and mild posterior calcaneal enthesopathy. IMPRESSION: Surgical fusion at the talocalcaneal and calcaneocuboid joints Polyarticular osteoarthritis Slight plantar and mild posterior calcaneal enthesopathy Reviewed, dictated and finalized at location A.
[2021-11-25 12:46] LABS: Basophils Absolute Auto 0.04 K/mm3 (0.00-0.10); Basophils Percent Auto 0.6 % (0.0-1.0); Eosinophils Absolute Auto 0.22 K/mm3 (0.02-0.50); Eosinophils Percent Auto 3.4 % (1.0-6.0); Hematocrit 45.4 % (40.0-54.0); Hemoglobin 14.8 g/dL (14.0-18.0); Immature Granulocyte Absolute 0.03 K/mm3 (0.00-0.00); Immature Granulocyte Percent A 0.5 % (0.0-0.0); Lymphocytes Absolute Auto 1.82 K/mm3 (1.10-4.50); Lymphocytes Percent Auto 28.1 % (18.0-42.0); Mean Corpuscular HGB Conc 32.6 g/dL (32.0-36.0); Mean Corpuscular Hemoglobin 32.4 pg (27.0-31.0); Mean Corpuscular Volume 99.3 fL (78.0-102.0); Mean Platelet Volume 9.9 fl (8.7-11.0); Monocytes Absolute Auto 0.53 K/mm3 (0.10-0.90); Monocytes Percent Auto 8.2 % (2.0-11.0); Neutrophils Absolute Auto 3.8 K/mm3 (1.7-7.2); Neutrophils Percent Auto 59.2 % (50.0-70.0); Platelet Count Result 168 K/mm3 (150-420); Red Blood Count 4.57 M/mm3 (4.70-6.10); Red Cell Distribution Width 13.3 % (11.6-14.4); White Blood Count 6.5 K/mm3 (4.8-10.8)
[2021-11-25 13:04] LABS: Uric Acid 6.4 mg/dL (3.5-7.2)
== END 2021-11-25 12:21 | disposition home or self-care (01) ==
LOC: CHSLAB 12:23
PROVIDERS: PCP Nurse Practitioner Family; Visit Provider Nurse Practitioner Family
DX: M79.672 Pain in left foot (principal)
CPT/HCPCS: 36415; 73620; 84550; 85025

== ENCOUNTER 2021-12-26 09:33 | Outpatient (CLI) | payer OTHER, SELFPAY ==
--- NOTE | ~2021-12-26 | US_ITS ---
EXAMINATION: US scrotum doppler DATE: 12/26/2021 10:15 INDICATION: Right scrotal pain, concern for hernia TECHNIQUE: Testicular sonogram utilizing grayscale and Doppler COMPARISON: 05/13/2021 FINDINGS: The right testis measures 4.1 x 2.7 x 2.2 cm. The left testis measures 3.9 x 2.3 x 1.9 cm. There is normal vascular flow to both testes. The right epididymis is normal with normal vascular atul w. The left epididymis is normal with normal vascular flow. Bilateral varicoceles are noted. No sonog raphically detected hernia is seen. IMPRESSION: 1. No sonographically detected hernia identified. Reviewed, dictated and finalized at location B.
== END 2021-12-26 09:34 | disposition home or self-care (01) ==
LOC: CHSIMG 09:35
PROVIDERS: PCP Family Medicine; Visit Provider Nurse Practitioner Family
DX: N50.82 Scrotal pain (principal)
CPT/HCPCS: 76870; 93976

== ENCOUNTER 2022-02-03 14:22 | Emergency (ER) | payer OTHER, SELFPAY ==
[2022-02-03 14:33] VITALS: BP 161/89; PULSE 73; PULSE 79; RESP 16; RESP 18; TEMP 35.9; O2SAT 95; O2SAT 97
[2022-02-03] MEDS: ONDANSETRON HCL ODT 4 MG TABLET PO (15:07)
--- NOTE | 2022-02-03 15:07 | ED.NAVMDI ---
HPI - Nausea/Vomiting/Diarrhea General Chief complaint: Nausea/Vomiting/Diarrhea Stated complaint: HEADACHE, WEAKNESS, NAUSEA Time Seen by Provider: 02/03/22 14:28 Source: patient and RN notes reviewed Mode of arrival: ambulatory Limitations: no limitations History of Present Illness MD elicited complaint: nausea, vomiting and diarrhea Onset (ago): hour(s) (2) Description of vomiting: food contents Description of diarrhea: lose Associated nausea: Yes Associated abdominal pain: No Exacerbating factors: eating Relieving factors: none Associated symptoms: denies other symptoms Treatment prior to arrival: other ( Dramamine) Related Data Home Medications Medication Instructions Recorded Confirmed aspirin 81 mg tablet,delayed 81 mg PO DAILY 01/29/20 02/03/22 release (Adult Aspirin Regimen) Allergies Allergy/AdvReac Type Severity Reaction Status Date / Time prednisone AdvReac Confusion Verified 02/03/22 14:37 Sulfa (Sulfonamide AdvReac Confusion Verified 02/03/22 14:37 Antibiotics) Review of Systems Review of Systems: All systems reviewed & are unremarkable except as noted in HPI and below Constitutional: Constitutional: Denies chills and Denies fever(s) ENT: Denies nasal congestion and Denies sore throat Respiratory: Respiratory: Denies cough and Reports dyspnea Gastrointestinal: Gastrointestinal: Reports as per HPI Musculoskeletal: Musculoskeletal: Denies myalgias PMFSH Past Medical History Medical History Abscess Acid reflux BMI greater than 40 Chronic diarrhea COVID Depression HTN (hypertension) Hypertension Left testicular pain MRSA (methicillin resistant Staphylococcus aureus) Nicotine dependence, cigarettes, uncomplicated Other ejaculatory dysfunction 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 Positive blood culture Scrotum pain Weakness Surgical History Surgical History History of ankle surgery Left History of colon surgery 2014 S/P excision of varicocele Family History Family History Father , father of [place] Heart disease Mother , mother of stroke in her early 70s Cerebrovascular accident Social History Social History Smoking packs per day: 1 Smoking cigarettes per day: 20.0 Years smoked: 40 Smoking pack-years: 40.00 Smoking status: Current every day smoker Tobacco type: cigarettes Alcohol use details: denies alcohol use Substance use: never Substance use type: does not use Exam Const: General: healthy appearing, no acute distress and alert Nutritional Appearance: well nourished and obese morbidly obese Orientation/consciousness: patient oriented x3 Limitations: no limitations HENMT: Head: normal to inspection Ears: external ears normal Face and sinus: normal facial exam Eyes: Conjunctivae: conjunctivae normal Cornea: corneas normal Pupils: Equal, round and reactive pupils present EOM: EOMs intact bilaterally Neck: Neck: normal visual inspection Resp: Effort & Inspection: normal respiratory effort Auscultation: clear to auscultation bilaterally Cardio: Rate: regular rate Rhythm: regular rhythm GI: GI Palp: Yes Soft to palpation, No Tenderness to palpation present (GI) and No Guarding due to palpation present (GI) Auscultation: normal bowel sounds Back/Spine/Pelvis: Cervical Spine: cervical ROM normal Thoracic/Lumbar Spine: thoraco-lumbar ROM normal Skin: General skin exam: normal color Rashes: no rashes Neuro: General: patient oriented x3, moves all extremities, no focal motor deficits and CN's II-XI intact bilaterally Speech: normal speech Gait exam (Neuro): Normal gait present Extrem: General: normal to inspection and no clubbing, cyanosis or edema Psych: Mental Status: mental status baldo
[2022-02-03 15:22] LABS: Influenza A QL RT-PCR Negative (Negative); Influenza B QL RT-PCR Negative (Negative); SARS-CoV-2 RNA PCR Negative (Negative)
[2022-02-03 15:37] VITALS: BP 150/83; PULSE 71; RESP 17; TEMP 35.9; O2SAT 97
== END 2022-02-03 15:38 | disposition home or self-care (01) ==
PROVIDERS: Emergency Provider Emergency Medicine; PCP Family Medicine
DX: K52.9 Noninfective gastroenteritis and colitis, unspecified (principal); Z20.822 Contact with and (suspected) exposure to COVID-19
CPT/HCPCS: 87502; 99283; A9270; C9803; U0003; U0005

== ENCOUNTER 2022-02-04 12:20 | Outpatient (CLI) | payer OTHER, SELFPAY ==
[2022-02-04 12:42] LABS: Basophils Absolute Auto 0.05 K/mm3 (0.00-0.10); Basophils Percent Auto 0.6 % (0.0-1.0); Eosinophils Absolute Auto 0.24 K/mm3 (0.02-0.50); Hematocrit 47.6 % (40.0-54.0); Hemoglobin 15.6 g/dL (14.0-18.0); Immature Granulocyte Absolute 0.04 K/mm3 (0.00-0.00); Immature Granulocyte Percent A 0.5 % (0.0-0.0); Lymphocytes Percent Auto 22.8 % (18.0-42.0); Mean Corpuscular HGB Conc 32.8 g/dL (32.0-36.0); Mean Corpuscular Hemoglobin 32.5 pg (27.0-31.0); Mean Corpuscular Volume 99.2 fL (78.0-102.0); Mean Platelet Volume 9.8 fl (8.7-11.0); Monocytes Absolute Auto 0.78 K/mm3 (0.10-0.90); Monocytes Percent Auto 9.9 % (2.0-11.0); Neutrophils Percent Auto 63.2 % (50.0-70.0); Platelet Count Result 196 K/mm3 (150-420); Red Cell Distribution Width 13.4 % (11.6-14.4); White Blood Count 7.9 K/mm3 (4.8-10.8)
[2022-02-04 12:56] LABS: Add Urine Microscopic? NO; Appearance Urine Clear (Clear); Bilirubin Urine Negative (Negative); Blood Urine Negative (Negative); Color Urine Yellow (Yellow); Glucose Urine UA Negative (Negative); Ketones Urine Negative (Negative); Leukocyte Esterase Ur Negative LEU/UL (Negative); Nitrate Urine Negative (Negative); Protein Urine Negative (Negative); Specific Grav Ur 1.025 (1.010-1.020); Urobilinogen Urine 0.2 mg/dL (0.2-1.0)
[2022-02-04 13:10] LABS: Alanine Aminotransferase 29 U/L (16-63); Albumin Level 3.7 g/dL (3.4-5.0); Alkaline Phosphatase 79 U/L (46-116); Anion Gap 8 mmol/L (8-16); Aspartate Amino Transferase 19 U/L (15-37); Bilirubin,Total 0.3 mg/dL (0.00-1.00); Blood Urea Nitrogen 18 mg/dL (7-18); Calcium 8.5 mg/dL (8.5-10.1); Carbon Dioxide 26 mmol/L (21-32); Chloride 103 mmol/L (98-108); Estimated Glomerular Filt Rate > 60; Free T4 Free Thyroxine 0.79 ng/dL (0.76-1.46); Glucose 95 mg/dL (70-99); Iron 90 ug/dL (65-175); Magnesium 2.1 mg/dL (1.8-2.4); Osmolality Calculated 285 mOsm/kg (285-295); Potassium 4.4 mmol/L (3.5-5.1); Sodium 137 mmol/L (136-145); Thyroid Stimulating Hormone 1.99 uIU/mL (0.36-3.74); Total Protein 7.4 g/dL (6.4-8.2)
[2022-02-08 17:09] LABS: Vitamin D 25 Hydroxy 29 ng/mL (30-100)
== END 2022-02-04 12:21 | disposition home or self-care (01) ==
LOC: CHSLAB 12:22
PROVIDERS: PCP Nurse Practitioner Family; Visit Provider Nurse Practitioner Family
DX: R53.1 Weakness (principal); I10 Essential (primary) hypertension; Z79.899 Other long term (current) drug therapy
CPT/HCPCS: 36415; 80053; 81003; 82306; 83540; 83735; 84439; 84443; 85025

== ENCOUNTER 2022-02-16 07:37 | Outpatient (CLI) | payer OTHER, SELFPAY | END 2022-02-16 07:38 | disposition home or self-care (01) | PROVIDERS: PCP Nurse Practitioner Family; Visit Provider Nurse Practitioner Family | DX: I50.9 Heart failure, unspecified (principal); R53.1 Weakness | CPT/HCPCS: 78452; A9502 ==

== ENCOUNTER 2022-07-14 07:47 | Outpatient (RCR) | payer OTHER, SELFPAY ==
--- NOTE | 2022-07-14 08:23 | PTOPEVAL1 ---
Assessment and note entered by Kuldip Brar Evaluation Information Assessment Status Evaluation Diagnosis right shoulder pain Onset 01/11/22 Subjective Information Pt. reports that right shoulder pain began about 6 months ago. He describes pain on the front side of the right shoulder. He states that he is right hand dominant. He reports that he cannot sleep flat and needs to sleep in the recliner due to pain. He reports pain is increased with reaching away from his body. He states that he cannot reach overhead as well, due to pain. He reports that his goal is to decrease his right shoulder pain. Reported Pain Level Pain Score 9: Self Report Assessment PT Clinical Summary Pt. is a 57 year old male who enters the clinic with right shoulder pain, secondary to rotator cuff syndrome. He presents with impaired right shoulder mobility, impaired right u.e. strength, and pain on this date. Continued treatment is indicated in order to improve these areas to allow the pt. to be able to complete all IADL's. Plan of Care Interventions Electrical Stimulation,Hot Pack/Cold Pack,Manual Therapy,Therapeutic Activities,Therapeutic Exercise PT Services Indicated Yes Treatment Frequency and 2x/week x 12 visits Duration These treatments will address the objective and functional deficits as defined above. The patient will be advanced safely and appropriately in order for the patient to progress towards his/her prior level of function. Additional exercises will be introduced and as well as a comprehensive home exercise program upon discharge, if needed, ?to ensure carryover of functional gains achieved in the clinic. This treatment plan has been reviewed and agreement upon by the patient.
== END 2022-07-29 23:59 | disposition home or self-care (01) ==
LOC: CHSPT 07:47
PROVIDERS: Visit Provider Orthopaedic Surgery
DX: M25.511 Pain in right shoulder (principal); G89.29 Other chronic pain; M75.21 Bicipital tendinitis, right shoulder; M19.011 Primary osteoarthritis, right shoulder
CPT/HCPCS: 97014; 97110; 97140; 97161; G0283

== ENCOUNTER 2023-12-11 15:17 | Emergency (ER) | payer BC, SELFPAY ==
[2023-12-11] VITALS (18 sets, daily range): BP systolic 131–141; BP diastolic 89–90; PULSE 87–108; RESP 17–29; TEMP 36.6; O2SAT 90–100
--- NOTE | ~2023-12-11 | XR_ITS ---
EXAMINATION: XR tibia fibula LT 2V DATE: 12/11/2023 16:32 INDICATION: Left lower leg pain and swelling. TECHNIQUE: 2 views of left tibia and fibula on 4 radiographs were obtained. COMPARISON: None. FINDINGS: Bone alignment is normal. No acute fracture. There is moderate left knee osteoarthritis. No knee joint effusion. There is screw fixation of calcaneus. There are changes of arthrodesis procedur e of subtalar joint with a lag screw. There is mild ankle joint osteoarthritis. IMPRESSION: 1. Polyarticular osteoarthritis. Reviewed, dictated and finalized at location E.
--- NOTE | ~2023-12-11 | CT_ITS ---
EXAMINATION: CTA chest PE protocol DATE: 12/11/2023 18:51 INDICATION: Cough. Shortness of breath. TECHNIQUE: Computed tomography angiography (CTA) of the chest was performed with 100 mL Omnipaque-350 intravenous contrast timed to evaluate the pulmonary arteries. Coronal maximum intensity projection 3D-reconstructions were created by the technologist. Automated exposure control and iterative reconst ruction technique were employed. The dose-length product was 1130.55 mGy-cm. COMPARISON: Chest CT 11/15/2015 FINDINGS: The lungs demonstrate mild atelectasis. No pleural effusion. There is a large distribution of acute pulmonary emboli in all lobes. The central pulmonary arteries are enlarged, consistent with pulmonary arterial hypertension. There is right ventricular enlargement of the heart, consistent with right heart strain. There are coronary artery calcifications. No pericardial effusion. There is a sm all sliding hiatal hernia. There is mild thoracic spondylosis. There is mild chronic anterior wedging of multiple lower thoracic vertebral bodies. IMPRESSION: 1. Extensive acute bilateral pulmonary emboli with right heart strain. I called this result to Dr. Tootie kenny. Reviewed, dictated and finalized at location E. IMPRESSION: 1. Extensive acute bilateral pulmonary emboli with right heart strain. I called this result to Dr. Turner.
--- NOTE | ~2023-12-11 | XR_ITS ---
EXAMINATION: XR chest 1V portable DATE: 12/11/2023 16:32 INDICATION: Shortness of breath. Cough. TECHNIQUE: A single frontal view of the chest was obtained on 2 radiographs. COMPARISON: Chest 2 views 10/18/2021 FINDINGS: There is no pneumonia, pleural effusion, or pneumothorax. The heart size is normal. IMPRESSION: 1. No acute cardiopulmonary disease. Reviewed, dictated and finalized at location E.
--- NOTE | 2023-12-11 15:35 | ECG_ITS ---
Test Date: 2023-12-11 15:52:18 Measurements Intervals [place] Rate: 100 P: 68 SC: 136 QRS: 161 QRSD: 116 T: 84 QT: 378 QTc: 488 Interpretive Statements SINUS TACHYCARDIA SUSPECT RIGHT TO LEFT ARM LEAD TRANSPOSITION LOW QRS VOLTAGE IN PRECORDIAL LEADS [QRS DEFLECTION < 1.0 mV IN CHEST LEADS] PATTERN CONSISTENT WITH PULMONARY DISEASE RIGHT BUNDLE BRANCH BLOCK [120+ ms QRS DURATION, UPRIGHT V1, 40+ ms S IN I/aVL/V4/V5/V6] ABNORMAL ECG No previous ECG available for comparison Electronically Signed On 12-12-2023 08:54:20 CDT by Kuldip Ocampo M.D.
[2023-12-11 16:48] LABS: Basophils Absolute Auto 0.04 K/mm3 (0.00-0.10); Basophils Percent Auto 0.3 % (0.0-1.0); Eosinophils Absolute Auto 0.15 K/mm3 (0.02-0.50); Eosinophils Percent Auto 1.2 % (1.0-6.0); Hematocrit 46.2 % (40.0-54.0); Hemoglobin 14.8 g/dL (14.0-18.0); Immature Granulocyte Absolute 0.11 K/mm3 (0.00-0.00); Immature Granulocyte Percent A 0.9 % (0.0-0.0); Immature Platelet Fraction Pct 7.8 % (1.0-7.0); Lymphocytes Absolute Auto 1.59 K/mm3 (1.10-4.50); Lymphocytes Percent Auto 12.8 % (18.0-42.0); Mean Corpuscular Volume 99.8 fL (78.0-102.0); Mean Platelet Volume 11.5 fl (8.7-11.0); Monocytes Absolute Auto 0.93 K/mm3 (0.10-0.90); Monocytes Percent Auto 7.5 % (2.0-11.0); Neutrophils Absolute Auto 9.65 K/mm3 (1.70-7.20); Neutrophils Percent Auto 77.3 % (50.0-70.0); Platelet Count Result 115 K/mm3 (150-420); Red Blood Count 4.63 M/mm3 (4.70-6.10); White Blood Count 12.5 K/mm3 (4.8-10.8)
[2023-12-11 17:00] LABS: Alanine Aminotransferase 16 U/L (16-63); Albumin Level 2.9 g/dL (3.4-5.0); Alkaline Phosphatase 69 U/L (46-116); Anion Gap 10 mmol/L (4-12); Aspartate Amino Transferase 12 U/L (15-37); Bilirubin,Total 0.6 mg/dL (0.00-1.00); Blood Urea Nitrogen 18 mg/dL (7-18); Calcium 8.3 mg/dL (8.5-10.1); Carbon Dioxide 24 mmol/L (21-32); Chloride 98 mmol/L (98-108); Estimated CRCL calculation 95 ml/min; Estimated Glomerular Filt Rate > 60; Glucose 170 mg/dL (70-99); Osmolality Calculated 279 mOsm/kg (285-295); Potassium 3.4 mmol/L (3.5-5.1); Sodium 132 mmol/L (136-145); Total Protein 7.1 g/dL (6.4-8.2)
[2023-12-11 17:08] LABS: CRP 12.6 mg/dL (0.0-0.9)
[2023-12-11 17:09] LABS: Prothrombin Time 11.3 Seconds (9.50-12.1)
[2023-12-11 17:12] LABS: D Dimer 21.78 mg/L (0.19-0.50)
[2023-12-11 17:31] LABS: Influenza A QL RT-PCR Negative (Negative); Influenza B QL RT-PCR Negative (Negative); RSV RNA, RT-PCR Negative (Negative); SARS-CoV-2 RNA PCR Negative (Negative)
[2023-12-11 17:46] LABS: NT Pro B Type Natriuretic Pept 3438 pg/mL (0-125)
[2023-12-11] MEDS: SODIUM CHLORIDE 0.9% IV 1,000 ML 999 ML IV CONT (18:32)
--- NOTE | 2023-12-11 19:10 | ED.SOB ---
HPI - SOB/Dyspnea General Chief Complaint: Shortness of Breath/Dyspnea Stated Complaint: left lower leg pain cough and sob Source: patient Mode of arrival: ambulatory Limitations: no limitations History of Present Illness HPI Narrative: this is a 58-year-old male that presents with some left calf pain with shortness of breath, that started for the last couple of days his calf pain has been off and on for weeks has a recent travel history by airplane to [place] back in October has a history of hypertension hyperlipidemia. Has a tobacco history with some no chest pain no abdominal pain no diarrhea constipation no fever chills. MD elicited complaint: shortness of breath Onset (ago): day(s) Related Data Home Medications Medication Instructions Recorded Confirmed aspirin 81 mg tablet,delayed 81 mg PO DAILY 01/29/20 12/11/23 release (Adult Aspirin Regimen) atorvastatin 40 mg tablet 40 mg PO DAILY 12/11/23 12/11/23 fluoxetine 20 mg capsule 20 mg PO HS 12/11/23 12/11/23 fluoxetine 20 mg capsule 40 mg PO DAILY 12/11/23 12/11/23 gabapentin 400 mg capsule 400 mg PO BID 12/11/23 12/11/23 lisinopril 10 mg tablet 20 mg PO DAILY 12/11/23 12/11/23 loperamide 2 mg capsule 2 mg PO DAILY PRN Diarrhea 12/11/23 12/11/23 trazodone 150 mg tablet 150 mg PO HS 12/11/23 12/11/23 Allergies Allergy/AdvReac Type Severity Reaction Status Date / Time prednisone AdvReac Confusion Verified 12/11/23 15:30 Sulfa (Sulfonamide AdvReac Confusion Verified 12/11/23 15:30 Antibiotics) Review of Systems Review of Systems: All systems reviewed & are unremarkable except as noted in HPI and below PMFSH Past Medical History Medical History Abscess Acid reflux BMI greater than 40 Chronic diarrhea COVID Depression HTN (hypertension) Hypertension Left testicular pain MRSA (methicillin resistant Staphylococcus aureus) Nicotine dependence, cigarettes, uncomplicated Other ejaculatory dysfunction Other long-term (current) drug therapy Positive blood culture Scrotum pain Weakness Surgical History Surgical History History of ankle surgery Left History of colon surgery 2013 S/P excision of varicocele Family History Family History Father , father of [place] Heart disease Mother , mother of stroke in her early 70s Cerebrovascular accident Social History Social History Smoking packs per day: 1 Smoking cigarettes per day: 20.0 Years smoked: 40 Smoking pack-years: 40.00 Smoking status: Current every day smoker Tobacco type: cigarettes Alcohol use details: denies alcohol use Substance use: never Substance use type: does not use Living arrangements: with family Exam Const: General: no acute distress Nutritional Appearance: obese Orientation/consciousness: patient oriented x3 Limitations: no limitations HENMT: Head: normal to inspection Neck: Neck: normal visual inspection and no lymphadenopathy Chest: Chest palpation & inspection: normal inspection of the chest Resp: Effort & Inspection: normal respiratory effort Auscultation: clear to auscultation bilaterally Cardio: Rate: tachycardic Rhythm: regular rhythm GI: GI Palp: Yes Soft to palpation Auscultation: normal bowel sounds : General: Yes bladder normal to palpation Skin: General skin exam: normal color Rashes: no rashes Neuro: General: patient oriented x3, moves all extremities, no meningeal signs and no focal motor deficits Extrem: General: no clubbing, cyanosis or edema and no pedal edema Other: Left calf pain with palpation Course Course Emergency Course: patient had elevated D-dimer and subsequently had a CTA performed which shows extensive pulmonary embolus with right heart strain EKG
[2023-12-11] MEDS: HEPARIN SODIUM 5,000 UNITS/ML VIAL 4000 UNITS IV PUSH (19:35)
[2023-12-11] MEDS: IPRATROPIUM 0.5 MG/ALBUTEROL SULFATE 2.5 MG AMPUL.NEB 3 ML INHALATION (19:51)
[2023-12-11] MEDS: HEPARIN SOD/D5W 100 UNITS/ML 25,000 UNITS/250 ML BAG 10 UNITS IV CONT (19:52)
[2023-12-11 20:35] LABS: Appearance Urine Clear (Clear); Bilirubin Urine Negative (Negative); Blood Urine Trace-intact (Negative); Color Urine Yellow (Yellow); Glucose Urine UA Negative (Negative); Ketones Urine Negative (Negative); Leukocyte Esterase Ur Negative LEU/UL (Negative); Nitrate Urine Negative (Negative); Protein Urine Trace (Negative); Urobilinogen Urine 0.2 mg/dL (0.2-1.0); pH Urine 5.5 (5.0-8.0)
[2023-12-11 20:39] LABS: Add Urine Microscopic? YES; RBC Urine None seen /hpf (0-2); Squamous Epithelial Cell Urine Rare /hpf (Few)
[2023-12-11] MEDS: MORPHINE SULFATE (*CRX) 4 MG/ML INJ IV PUSH (20:54)
--- NOTE | 2023-12-18 13:15 | PC.NURSE ---
blood culture noted, no growth
== END 2023-12-11 22:35 | disposition short-term general hospital (02) ==
PROVIDERS: Emergency Provider Emergency Medicine
DX: I26.99 Other pulmonary embolism without acute cor pulmonale (principal); I10 Essential (primary) hypertension; E78.5 Hyperlipidemia, unspecified; F17.210 Nicotine dependence, cigarettes, uncomplicated; Z79.82 Long term (current) use of aspirin; Z79.899 Other long term (current) drug therapy; Z20.822 Contact with and (suspected) exposure to COVID-19
CPT/HCPCS: 36415; 71045; 71275; 73590; 80053; 81001; 83880; 85025; 85055; 85380; 85610; 85730; 86140; 87040; 87637; 93005; 96361; 96365; 96366; 96375; 99285; J1644; J2270; J7030; Q9967

== ENCOUNTER 2024-04-17 14:53 | Emergency (ER) | payer BC, SELFPAY ==
[2024-04-17 15:10] VITALS: BP 132/60; PULSE 66; RESP 16; TEMP 36.4; O2SAT 99
== END 2024-04-17 15:23 | disposition left against medical advice (07) ==
LOC: EXPBETH 14:57
PROVIDERS: Emergency Provider Registered Nurse
DX: Z53.21 Procedure and treatment not carried out due to patient leaving prior to being seen by health care provider (principal)
CPT/HCPCS: 99199

== ENCOUNTER 2025-03-29 16:15 | Emergency (ER) | payer BC, SELFPAY ==
--- NOTE | ~2025-03-29 | XR_ITS ---
EXAMINATION: XR knee RT 3V DATE: 03/29/2025 17:56 INDICATION: Knee injury TECHNIQUE: Anteroposterior, 2 oblique and crosstable lateral views of the right knee were obtained COMPARISON: None. FINDINGS: Alignment is normal. No fracture. Small marginal osteophytes and mild joint space narrowing the lateral compartment although the severity of joint space narrowing can be underestimated on nonweightbearing imaging. No joint effusion/layering lipohemarthrosis. Mild soft tissue swelling anterior to the p atella and patellar tendon. Multiple unchanged small ovoid calcifications projecting over the soft tissues anterior to the knee and proximal tibia which could represent phleboliths or heterotopic ossification. IMPRESSION: 1. Mild osteoarthritis at the lateral compartment of the right knee. No acute osseous abnormality. Reviewed, dictated and finalized at location A. IMPRESSION: 1. Mild osteoarthritis at the lateral compartment of the right knee. No acute o sseous abnormality.
[2025-03-29 16:30] VITALS: BP 150/76; PULSE 69; RESP 20; TEMP 36.2; O2SAT 97
[2025-03-29 17:29] VITALS: BP 155/74; PULSE 73; RESP 20; O2SAT 99
--- NOTE | 2025-03-29 18:06 | ED.LOWEXIN ---
HPI - Extremity Injury (Lower) General Chief Complaint: Extremity Injury, Lower Stated Complaint: RIGHT KNEE PAIN AFTER FALL 6 DAYS AGO Source: patient Mode of arrival: ambulatory Limitations: no limitations History of Present Illness HPI Narrative: this is a 59-year-old male with history of CHF history of pulmonary embolism on Eliquis had a fall 1 week ago onto his right anterior knee causing abrasion and pain with movement no calf pain no calf swelling. The patient does have an area of abrasion with surrounding erythema warmth and tenderness. Has good range of motion in his knee with no calf pain no calf swelling. There is no shortness of breath no chest pain no fever chills. complaint: knee injury Onset (ago): week(s) Type of Injury: blunt Place: street/outdoors Severity: mild Related Data Home Medications ?Medication ?Instructions ?Recorded ?Confirmed ?Last Taken ?Type aspirin 81 mg tablet,delayed 81 mg PO DAILY 01/29/20 12/11/23 Unknown History release (Adult Aspirin Regimen) atorvastatin 40 mg tablet 40 mg PO DAILY 12/11/23 12/11/23 Unknown History fluoxetine 20 mg capsule 20 mg PO HS 12/11/23 12/11/23 Unknown History fluoxetine 20 mg capsule 40 mg PO DAILY 12/11/23 12/11/23 Unknown History gabapentin 400 mg capsule 400 mg PO BID 12/11/23 12/11/23 Unknown History lisinopril 10 mg tablet 20 mg PO DAILY 12/11/23 12/11/23 Unknown History loperamide 2 mg capsule 2 mg PO DAILY PRN Diarrhea 12/11/23 12/11/23 Unknown History trazodone 150 mg tablet 150 mg PO HS 12/11/23 12/11/23 Unknown History apixaban 5 mg tablet (Eliquis) mg 04/17/24 Unknown History sacubitril 24 mg-valsartan 26 mg tablet 04/17/24 Unknown History tablet (Entresto) Allergies Allergy/AdvReac Type Severity Reaction Status Date / Time prednisone AdvReac Confusion Verified 12/11/23 15:30 Sulfa (Sulfonamide AdvReac Confusion Verified 12/11/23 15:30 Antibiotics) Review of Systems Review of Systems: All systems reviewed & are unremarkable except as noted in HPI and below PMFSH Past Medical History Medical History Scrotum pain COVID Other ejaculatory dysfunction Positive blood culture MRSA (methicillin resistant Staphylococcus aureus) Other group home (current) drug therapy Weakness Left testicular pain Abscess Chronic diarrhea Depression HTN (hypertension) Acid reflux BMI greater than 40 Nicotine dependence, cigarettes, uncomplicated Hypertension Surgical History Surgical History History of colon surgery 2013 History of ankle surgery Left S/P excision of varicocele Family History Family History Father , father of [place] Heart disease Mother , mother of stroke in her early 70s Cerebrovascular accident Social History Social History Smoking packs per day: 1 Smoking cigarettes per day: 20.0 Years smoked: 40 Smoking pack-years: 40.00 Smoking status: Current every day smoker Tobacco type: cigarettes Alcohol use details: denies alcohol use Substance use: never Substance use type: does not use Living arrangements: with family Exam Const: General: healthy appearing and no acute distress Nutritional Appearance: well nourished and obese Orientation/consciousness: patient oriented x3 Resp: Effort & Inspection: normal respiratory effort Auscultation: clear to auscultation bilaterally Cardio: Rate: regular rate Rhythm: regular rhythm GI: GI Palp: Yes Soft to palpation Auscultation: normal bowel sounds Skin: Wounds: wounds noted Other: Abrasion anterior knee with surrounding erythema warmth and tenderness. Neuro: General: moves all extremities Extrem: Other: He has good range of motion is needed is tender with an abrasion anterior knee with surrounding erythema Course Course Emergency Course: medical decision making narrative: The patient was evaluated by myself in the emergency department. History obtained from the patient who is an independent historian physical exam performed and witnessed by tach. External records were reviewed at this time. Patient had an x-ray performed which showed no acute fractures of his right knee. The patient was updated with tetanus and with surrounding abrasion in erythema anterior right knee antibiotic was started with Augmentin p.o. 1 dose in the emergency department. After repeat assessment patient doing well on repeat exam with no acute distress. Symptoms improved since arrival to the emergency department A repeat vitals are stable. Patient agrees to it with discussion and after shared medical decision-making and agrees with discharge. All questions answered to the patient's satisfaction. Follow-up with primary care physician 3 to 5 days Patient provided with strict return precautions and return to the ED if any worsening symptoms. Vital Signs Vital signs: Vital Signs Temperature 36.2 C L 03/29/25 16:30 Pulse Rate 69 03/29/25 16:30 Respiratory Rate 20 03/29/25 16:30 Blood Pressure 150/76 H 03/29/25 16:30 Pulse Oximetry 97 03/29/25 16:30 Oxygen Delivery Room Air 03/29/25 16:30 Temperature 36.2 C L 03/29/25 16:30 Pulse Rate 73 03/29/25 17:29 Respiratory Rate 20 03/29/25 17:29 Blood Pressure 155/74 H 03/29/25 17:29 Pulse Oximetry 99 03/29/25 17:29 Oxygen Delivery Room Air 03/29/25 17:29 Critical Care Time Critical Care Time Critical Care Time: No Discharge Plan Discharge Clinical Impression: Cellulitis Qualifiers: Site of cellulitis: unspecified site Qualified Code(s): L03.90 - Cellulitis, unspecified Patient Disposition: Home Condition: Stable Instructions: Antibiotic Form, Cellulitis (ED), Knee Pain (ED) Additional Instructions: advised to take medication as prescribed and follow with primary in the next 3 to 5 days for further evaluation and treatment. Patient Language: Mohawk Prescriptions: New amoxicillin-pot clavulanate [Augmentin] 500-125 mg tablet 1 tablet PO TID Qty: 30 0RF No Action atorvastatin 40 mg tablet 40 mg PO DAILY loperamide 2 mg capsule 2 mg PO DAILY PRN (Reason: Diarrhea) gabapentin 400 mg capsule 400 mg PO BID trazodone 150 mg tablet 150 mg PO HS fluoxetine 20 mg capsule 20 mg PO HS lisinopril 10 mg tablet 20 mg PO DAILY Rx Instructions: TAKE ONE TABLET BY MOUTH DAILY fluoxetine 20 mg capsule 40 mg PO DAILY Rx Instructions: TAKE ONE CAPSULE BY MOUTH TWICE A DAY Eliquis 5 mg tablet Entresto 24-26 mg tablet aspirin [Adult Aspirin Regimen] 81 mg tablet,delayed release (DR/EC) 81 mg PO DAILY Follow-up/Referrals: PHYSICIAN,PRINCIPAL CLOUD ARCHITECT [Primary Care Provider, Internal Medicine] Time of Disposition: 18:12
[2025-03-29] MEDS: TETANUS,DIPHTHERIA,AC PERTUSSIS ADULT 0.5 ML (ADACEL) IM (18:23)
[2025-03-29] MEDS: KETOROLAC 30 MG/ML VIAL (*BKC) IM (18:24)
[2025-03-29 18:43] VITALS: BP 148/92; PULSE 74; RESP 20; O2SAT 98
== END 2025-03-29 18:43 | disposition home or self-care (01) ==
PROVIDERS: Emergency Provider Emergency Medicine; Referring Provider Family Medicine
DX: L03.115 Cellulitis of right lower limb (principal); I11.0 Hypertensive heart disease with heart failure; I50.9 Heart failure, unspecified; F17.210 Nicotine dependence, cigarettes, uncomplicated; Z79.01 Long term (current) use of anticoagulants; Z23 Encounter for immunization; W19.XXXA Unspecified fall, initial encounter
CPT/HCPCS: 73562; 90471; 90715; 96372; 99283; A9270; J1885